=== PATIENT | female | born 1965 | race Caucasian/White ===

== ENCOUNTER 2018-10-02 07:58 | Emergency (ER) ==
[2018-10-02 08:07] VITALS: BP 153/82; TEMP 98.5; BMI 27.0
[2018-10-02] MEDS ORDERED: TETRACAINE 0.5% OPTH SOL OP STA (08:58)
[2018-10-02] MEDS ORDERED: TENIVAC IM ONE (08:58)
[2018-10-02] MEDS ORDERED: FUL-GLO OP STA (08:58)
[2018-10-02] MEDS ORDERED: EYE-STREAM OP STA (08:59)
[2018-10-02] MEDS ORDERED: TETRACAINE 0.5% UNIT-DOSE OP STA (08:59)
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
== END 2018-10-02 09:55 | disposition home or self-care (01) ==
LOC: ED 07:58
DX: S05.01XA Injury of conjunctiva and corneal abrasion without foreign body, right eye, initial encounter (principal); W22.8XXA Striking against or struck by other objects, initial encounter; F17.210 Nicotine dependence, cigarettes, uncomplicated
CPT/HCPCS: 90471; 90714; 99283

== ENCOUNTER 2020-09-03 13:56 | Inpatient (IN) ==
[2020-09-03 14:03] VITALS: BMI 25.4
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
[2020-09-03] MEDS ORDERED: LACTATED RINGERS 1,000 ML IV STA ×2 (15:05→23:38)
[2020-09-03] MEDS ORDERED: VANCOMYCIN 1 GM in SODIUM CHLORIDE 250 ML IV STA (15:05)
[2020-09-03 15:21] LABS: BASOPHILS # (AUTO) 0.1 K/uL (0-0.2); BASOPHILS % (AUTO) 0.3 % (0.0-3.0); EOSINOPHILS % (AUTO) 0.1 % (0.0-7.0); HEMATOCRIT 39.4 % (37.0-47.0); HEMOGLOBIN 13.5 g/dl (12.0-16.0); IMMATURE GRANULOCYTE # (AUTO) 0.2 (0.0-1.0); IMMATURE GRANULOCYTE % (AUTO) 0.7 % (0.0-5.0); LYMPHOCYTES # (AUTO) 1.6 K/uL (0.60-3.4); LYMPHOCYTES % (AUTO) 5.3 (10.0-50.0); MEAN CORPUSCULAR HEMOGLOBIN 30.8 pg (27.0-31.0); MEAN CORPUSCULAR HGB CONC 34.3 (31.8-35.4); MONOCYTES # (AUTO) 1.4 K/uL (0.4-2.0); MONOCYTES % (AUTO) 4.7 (0-10); NEUTROPHILS # (AUTO) 26.3 K/ul (2.0-6.9); NEUTROPHILS % (AUTO) 88.9 % (42.2-75.2); PLATELET COUNT 305 10^3/uL (140-440); RDW COEFFICIENT OF VARIATION 12.8 % (11.6-14.8); RED BLOOD COUNT 4.38 10^6/ul (4.20-5.40); WHITE BLOOD COUNT 29.52 K/ul (4.6-10.2)
[2020-09-03 15:22] LABS: BORDETELLA PARAPERTUSSIS (PCR) NOT DETECTED (NOT DETECT); BORDETELLA PERTUSSIS (PCR) NOT DETECTED (NOT DETECT); CHLAMYDIA PNEUMONIAE (PCR) NOT DETECTED (NOT DETECT); CORONAVIRUS 229E (PCR) NOT DETECTED (NOT DETECT); CORONAVIRUS HKU1 (PCR) NOT DETECTED (NOT DETECT); CORONAVIRUS NL63 (PCR) NOT DETECTED (NOT DETECT); CORONAVIRUS OC43 (PCR) NOT DETECTED (NOT DETECT); HUMAN METAPNEUMOVIRUS (PCR) NOT DETECTED (NOT DETECT); HUMAN RHINOVIRUS/ENTEROV (PCR) NOT DETECTED (NOT DETECT); INFLUENZA B (PCR) NOT DETECTED (NOT DETECT); MYCOPLASMA PNEUMONIAE (PCR) NOT DETECTED (NOT DETECT); PARAINFLUENZA VIRUS 1 (PCR) NOT DETECTED (NOT DETECT); PARAINFLUENZA VIRUS 2 (PCR) NOT DETECTED (NOT DETECT); PARAINFLUENZA VIRUS 3 (PCR) NOT DETECTED (NOT DETECT); PARAINFLUENZA VIRUS 4 (PCR) NOT DETECTED (NOT DETECT); RESPIRATORY SYNCYTIAL V (PCR) NOT DETECTED (NOT DETECT); SARS_COV_2 (PCR) NOT DETECTED (NOT DETECT)
[2020-09-03 15:23] LABS: BILIRUBIN,URINE Negative (NEGATIVE); CLARITY,URINE Clear (CLEAR); COLOR,URINE Yellow (YELLOW); GLUCOSE, URINE (UA) Negative (NEGATIVE); KETONES,URINE 1+ (NEGATIVE); LEUKOCYTE ESTERASE ,URINE Trace (NEGATIVE); NITRITE,URINE Negative (NEGATIVE); PH,URINE 8.5 (5-9); PROTEIN,URINE Negative (NEGATIVE); URINE, BLOOD 1+ (NEGATIVE)
[2020-09-03 15:28] LABS: BACTERIA,URINE TRACE (NOT PRESENT); URINE WBC, MICROSCOPIC 0-2 (0-2)
[2020-09-03 15:34] LABS: ALANINE AMINOTRANSFERASE 25.5 U/L (0-35); ALBUMIN 3.84 g/dL (3.5-5.0); ALKALINE PHOSPHATASE 122.4 U/L (38-126); BILIRUBIN,TOTAL 0.63 mg/dL (0.2-1.3); BLOOD UREA NITROGEN 12.1 mg/dL (7-17); CALCIUM 8.97 mg/dL (8.4-10.2); CARBON DIOXIDE 24.1 mmol/L (22-30.0); CHLORIDE 103.9 mmol/L (98-107); CREATININE 0.55 mg/dL (0.60-1.30); GLUCOSE 102.7 mg/dL (74-106); POTASSIUM 3.75 mmol/L (3.5-5.1); SODIUM 134.1 mmol/L (134.5-145); TOTAL PROTEIN 7.13 g/dL (6.3-8.2)
--- NOTE | 2020-09-03 15:55 | DI ---
EXAM: CHEST FRONTAL AND LATERAL VIEWS HISTORY: Cellulitis COMPARISON: 11/11/2012 FINDINGS: Heart size remains within normal limits. Atherosclerotic disease is present. No acute in filtrates are seen. No vascular congestion. There is no consolidation, visible pleural fluid or pne umothorax. Bones reveal no acute fracture. IMPRESSION: No acute cardiopulmonary process.
[2020-09-03 16:14] LABS: ADENOVIRUS (PCR) NOT DETECTED (NOT DETECT)
[2020-09-03] MEDS ORDERED: TYLENOL PO ONE (16:30)
[2020-09-03] MEDS ORDERED: ZOSYN 3.375 GM 3.375 GM in SODIUM CHLORIDE 50 ML IV ONE (17:13)
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
[2020-09-03] MEDS ORDERED: ZOSYN 3.375 GM 3.375 GM in SODIUM CHLORIDE 50 ML IV STA (20:59)
[2020-09-03 21:20] VITALS: BP 94/58; TEMP 98.2
[2020-09-03] MEDS ORDERED: VANCOMYCIN 1.5 GRAM/300 ML PREMIX 1.5 GM/300 ML BAG IV SCH (22:00)
[2020-09-03] MEDS ORDERED: TORADOL IVP ONE (23:38)
--- NOTE | 2020-09-04 00:37 | PCM.HOSP ---
Hospital Discharge [id number] Minutes or Less (94096): Acute left prepatellar cellulitis / bursitis
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
--- NOTE | 2020-09-04 02:03 | PCM.DC ---
Final Diagnosis:Left knee contusion Left knee cellulitis Left prepatellar bursitis Medications at Discharge: Medication Instructions Recorded aspirin 81 mg PO DAILY 10/25/12 Vancomycin 1.5 gram IV Toradol 30mg IV
--- NOTE | 2020-09-04 09:00 | PCM.PROG ---
Physical Examination: Vitals: Temperature 98.2 F, Pulse 81, Respirations 18, Blood Pressure 94/58, SPO2 95 Body Measurements: Height 5 ft 1 in, Weight 135 lb, BMI 25.4-Normal Allergies Allergy/AdvReac Type Severity Reaction Status Date / Time ceftriaxone sodium AdvReac Rash Verified 09/03/20 14:03 [From Rocephin] chlorpheniramine AdvReac Rash Verified 09/03/20 14:03 [From Triaminic Cold/Cough] dextromethorphan HBr AdvReac Rash Verified 09/03/20 14:03 [From Triaminic Cold/Cough] morphine AdvReac Vomiting Verified 09/03/20 14:03 phenylephrine HCl AdvReac Rash Verified 09/03/20 14:03 [From Triaminic Cold/Cough] pseudoephedrine HCl AdvReac Rash Verified 09/03/20 14:03 [From Triaminic Cold/Cough] ASSESSMENT: Please see below. PFSH Family History Mother Hypertension BROTHER Hypertension Other Diabetes Social History Smoking and tobacco status: Current every day smoker Tobacco type: cigarettes Passive smoking exposure: Yes Who is smoking: other Female Reproductive History Menstrual Hx Hysterectomy: Yes (1986) Hx Tubal Ligation: No Menopause type: surgical
--- NOTE | 2020-09-04 09:17 | PCM.PROG ---
History of Present Illness: Admitted 09/03/20 17:38, this 55 year old /WHITE/F [] Physical Examination: Vitals: Temperature 98.2 F, Pulse 81, Respirations 18, Blood Pressure 94/58, SPO2 95 Body Measurements: Height 5 ft 1 in, Weight 135 lb, BMI 25.4-Normal Allergies Allergy/AdvReac Type Severity Reaction Status Date / Time ceftriaxone sodium AdvReac Rash Verified 09/03/20 14:03 [From Rocephin] chlorpheniramine AdvReac Rash Verified 09/03/20 14:03 [From Triaminic Cold/Cough] dextromethorphan HBr AdvReac Rash Verified 09/03/20 14:03 [From Triaminic Cold/Cough] morphine AdvReac Vomiting Verified 09/03/20 14:03 phenylephrine HCl AdvReac Rash Verified 09/03/20 14:03 [From Triaminic Cold/Cough] pseudoephedrine HCl AdvReac Rash Verified 09/03/20 14:03 [From Triaminic Cold/Cough] ASSESSMENT: Please see below. PFSH Family History Mother Hypertension BROTHER Hypertension Other Diabetes Social History (Updated 09/03/20 @ 18:23 by FIFI PUCKETT RN) Smoking and tobacco status: Current every day smoker Tobacco type: cigarettes Passive smoking exposure: Yes Who is smoking: other Female Reproductive History Menstrual Hx Hysterectomy: Yes (1986) Hx Tubal Ligation: No Menopause type: surgical
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
== END 2020-09-04 02:41 | disposition short-term general hospital (02) | DRG 605 ==
LOC: ED 13:56 → MEDSURG A 17:38
PROVIDERS: ADMIT Emergency Medicine; ATTEND Emergency Medicine